=== PATIENT | male | born 1980 | race Caucasian/White ===

== ENCOUNTER → 2020-05-23 | Outpatient (CLI) | payer BC ==
[2020-05-23 12:55] LABS: HEMOGLOBIN 12.7 gm/dl (14.0-17.5); RED BLOOD COUNT 4.05 M/UL (4.20-5.50); WHITE BLOOD COUNT 4.4 K/UL (4.5-11.0)
[2020-05-23 13:21] LABS: BUN/CREATININE RATIO 19 (0-10)
[2020-05-24 08:14] LABS: VITAMIN D, 25-HYDROXY 49.9 ng/mL (30.0-100.0)
[2020-05-28 11:14] LABS: TESTOSTERONE, SERUM 588 ng/dL (264-916)
== END ==
LOC: LAB 12:09
PROVIDERS: Family Medicine
DX: D64.9 Anemia, unspecified (principal); E03.9 Hypothyroidism, unspecified; E34.9 Endocrine disorder, unspecified
CPT/HCPCS: 36415; 80053; 80061; 83540; 83550; 84402; 84403; 84443; 85025